=== PATIENT | female | born 1970 | race Caucasian/White ===

== ENCOUNTER → 2016-11-18 | Outpatient (CLI) | payer MEDICARE, MEDICAID ==
[~2016-11-18] MED LIST: ALBUTEROL0.09 MG/A1 IH; ALOCRIL OP; ASTELIN NASAL S34 ML NS; ATROVENT NASAL15 ML NS; CALCIUM CITRAT200 MG PO; CARDIZEM CD 18180 MG PO; CEPHALEXIN500 M1 PO; COLACE 100100 MG/CAP PO; DARVOCET-N-101 UDTAB PO; FLONASE NASAL S16 GM NS; MUCINEX 60600 MG/TA1 PO; NEURONTIN100 MG/CAP PO; PEPCID 20MG TAB20 MG PO; PREDNISONE10 MG PO; PREVACID 30MG30 MG PO; SINGULAIR10 MG PO; SUDAFED60 MG PO; TUSS PO; TYLENOL 500MG500 MG PO; VITAMIN C500 MG PO; ZYRTEC 10MG; ZYRTEC 10MG10 MG PO; ZYRTEC10 MG PO
== END ==
LOC: BHSO 09:34
DX: F41.1 Generalized anxiety disorder (principal)

== ENCOUNTER → 2017-05-19 | Outpatient (CLI) | payer MEDICARE, MEDICAID | LOC: BHSO 08:30 | DX: F41.1 Generalized anxiety disorder (principal) ==

== ENCOUNTER 2017-09-19 00:02 | Emergency (ER) | payer MEDICARE, MEDICAID ==
[~2017-09-19] VITALS: Ht 157.5 cm; Wt 51.4 kg
[2017-09-19 00:23] VITALS: TEMP 97.9
[2017-09-19 01:41] LABS: COLLECTION METHOD CLEAN CATCH
[2017-09-19 01:49] LABS: AMORPHOUS CRYSTAL Present /uL; MUCOUS Present /lpf; PH 7 (5-8); URINE APPEARANCE Cloudy; URINE BACTERIA Occasional /hpf; URINE BILIRUBIN Negative (NEGATIVE); URINE BLOOD Negative (NEGATIVE); URINE COLOR Yellow; URINE GLUCOSE Negative (NEGATIVE); URINE KETONE Negative (NEGATIVE); URINE LEUKOCYTE ESTERASE 1+ (NEGATIVE); URINE NITRATE Negative (NEGATIVE); URINE PROTEIN(semi-quant) Negative (NEGATIVE); URINE UROBILINOGEN Negative (NEGATIVE)
[2017-09-19] MEDS ORDERED: FLEXERIL 1010 MG/TAB PO ×2 (02:32→02:44)
[2017-09-19 02:34] VITALS: BP 131/56; PULSE 77
[2017-09-21] MEDS ORDERED: CIPRO 500MG TA500 MG PO (03:58)
== END 2017-09-19 02:35 | disposition home or self-care (01) ==
LOC: COL.ER 00:02
PROVIDERS: Nurse Practitioner
DX: M54.5 Low back pain (principal); G89.29 Other chronic pain; J45.909 Unspecified asthma, uncomplicated; G80.9 Cerebral palsy, unspecified

== ENCOUNTER → 2017-11-17 | Outpatient (CLI) | payer MEDICARE, MEDICAID ==
[~2017-11-17] MED LIST changes: +CIPRO 500MG TA500 MG PO; +FLEXERIL 1010 MG/TAB PO
== END ==
LOC: BHSO 09:19
DX: F41.1 Generalized anxiety disorder (principal)
CPT/HCPCS: G0463

== ENCOUNTER 2017-12-05 20:30 | Emergency (ER) | payer MEDICARE, MEDICAID ==
[~2017-12-05] VITALS: Ht 157.5 cm; Wt 64.5 kg
[2017-12-05 20:33] VITALS: BP 122/81; TEMP 98.7
[2017-12-05 22:51] VITALS: PULSE 79
== END 2017-12-05 22:50 | disposition home or self-care (01) ==
LOC: COL.ER 20:30
DX: J02.9 Acute pharyngitis, unspecified (principal); J45.909 Unspecified asthma, uncomplicated; K21.9 Gastro-esophageal reflux disease without esophagitis

== ENCOUNTER → 2017-12-09 | Outpatient (CLI) | payer MEDICARE, MEDICAID | LOC: COL.LAB 08:39 | DX: R05 Cough (principal); R50.9 Fever, unspecified ==

== ENCOUNTER 2017-12-23 13:15 | Outpatient (RCR) | payer MEDICARE, MEDICAID | END 2017-12-24 09:05 | disposition home or self-care (01) | LOC: MKS.ESL.PT 13:15 | DX: M54.5 Low back pain (principal) | CPT/HCPCS: G8978-GP; G8979-GP; G8980-GP ==

== ENCOUNTER → 2018-04-14 | Outpatient (CLI) | payer MEDICARE, MEDICAID | LOC: COL.RAD 08:49 | DX: R10.32 Left lower quadrant pain (principal) ==

== ENCOUNTER → 2018-05-19 | Outpatient (CLI) | payer MEDICARE, MEDICAID | LOC: BHSO 10:00 | DX: F41.1 Generalized anxiety disorder (principal) | CPT/HCPCS: G0463 ==

== ENCOUNTER 2018-05-25 09:00 | Outpatient (RCR) | payer MEDICARE, MEDICAID | END 2018-08-08 | disposition home or self-care (01) | LOC: WSST | DX: R13.10 Dysphagia, unspecified (principal) | CPT/HCPCS: G8996-GN; G8997-GN ==

== ENCOUNTER → 2018-05-25 | Outpatient (CLI) | payer MEDICARE, MEDICAID | LOC: COL.RAD 08:38 | DX: R13.10 Dysphagia, unspecified (principal) | CPT/HCPCS: G8996-GN; G8997-GN; G8998-GN ==

== ENCOUNTER 2018-08-26 13:30 | Outpatient (RCR) | payer MEDICARE, MEDICAID | END 2018-08-31 | disposition home or self-care (01) | LOC: MKS.ESL.PT | DX: M54.5 Low back pain (principal) | CPT/HCPCS: G0283-GP; G8978-GP; G8979-GP ==

== ENCOUNTER 2018-10-12 14:15 | Outpatient (RCR) | payer MEDICARE, MEDICAID | END 2018-12-13 | disposition home or self-care (01) | LOC: WSST | DX: R13.12 Dysphagia, oropharyngeal phase (principal) ==

== ENCOUNTER → 2018-11-17 | Outpatient (CLI) | payer MEDICARE, MEDICAID | LOC: BHSO 09:25 | DX: F41.1 Generalized anxiety disorder (principal) | CPT/HCPCS: G0463 ==

== ENCOUNTER 2019-04-06 13:15 | Outpatient (RCR) | payer MEDICARE, MEDICAID | END 2019-04-20 10:25 | disposition home or self-care (01) | LOC: MKS.ESL.PT 13:15 | DX: M54.5 Low back pain (principal); Z87.39 Personal history of other diseases of the musculoskeletal system and connective tissue ==

== ENCOUNTER → 2019-05-17 | Outpatient (CLI) | payer MEDICARE, MEDICAID | LOC: BHSO 09:49 | DX: F41.1 Generalized anxiety disorder (principal) | CPT/HCPCS: G0463 ==

== ENCOUNTER → 2019-06-30 | Outpatient (CLI) | payer MEDICARE, MEDICAID | LOC: COL.LAB 08:20 | DX: J84.10 Pulmonary fibrosis, unspecified (principal) ==

== ENCOUNTER → 2020-05-15 | Outpatient (CLI) | payer MEDICARE, MEDICAID | LOC: BHSO 13:13 | DX: F41.1 Generalized anxiety disorder (principal) ==

== ENCOUNTER 2021-12-26 18:22 | Emergency (ER) | payer MEDICARE, MEDICAID ==
[~2021-12-26] VITALS: Ht 160 cm; Wt 68.2 kg
[2021-12-26 18:33] VITALS: TEMP 98.2
[2021-12-26 19:50] VITALS: BP 129/68; PULSE 92
== END 2021-12-26 20:01 | disposition home or self-care (01) ==
LOC: COL.ER 18:22
DX: U07.1 COVID-19 (principal)

== ENCOUNTER → 2022-02-14 | Outpatient (CLI) | payer MEDICARE, MEDICAID | LOC: MC.RAD 01-23 13:00 | DX: Z12.31 Encounter for screening mammogram for malignant neoplasm of breast (principal) ==

== ENCOUNTER 2022-12-01 11:15 | Outpatient (RCR) | payer MEDICARE, MEDICAID | END 2022-12-07 | disposition home or self-care (01) | LOC: MKS.ESL.PT | DX: M76.31 Iliotibial band syndrome, right leg (principal); M24.851 Other specific joint derangements of right hip, not elsewhere classified ==